=== PATIENT | male | born 1965 | race Caucasian/White ===

== ENCOUNTER 2016-09-23 18:05 | Emergency (ER) | payer SELFPAY ==
[~2016-09-23] VITALS: Ht 180.3 cm; Wt 112.5 kg
[2016-09-23 18:15] VITALS: BP 150/85
--- NOTE | 2016-09-23 18:42 | PHYS DOC ---
Past Medical History Past Medical History: No Pertinent History Past Surgical History: No Surgical History Alcohol Use: None Drug Use: None Adult General Chief Complaint Chief Complaint: MECHANICAL FALL [facility] HPI Patient is a 50 year old female presents emergency department stating that he fell 3 foot off of a ladder this morning when he was trying to fix a satellite instructed. He states when he landed he landed on his right shoulder. Patient is right-hand dominant. 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 He states that he has taken pain medication at home Tylenol at home and aspirin without relief. Patient denies any numbness or tingling into his fingers. He has equal abrasive band winder and equal strength bilaterally. He does have decreased range of motion to the right shoulder Review of Systems Review of Systems Constitutional: Denies fever or chills [] Eyes: Denies change in visual acuity, redness, or eye pain [] HENT: Denies nasal congestion or sore throat [] Respiratory: Denies cough or shortness of breath [] Cardiovascular: No additional information not addressed in HPI [] GI: Denies abdominal pain, nausea, vomiting, bloody stools or diarrhea [] : Denies dysuria or hematuria [] Musculoskeletal: Denies back pain. Right shoulder pain after fall Integument: Denies rash or skin lesions [] Neurologic: Denies headache, focal weakness or sensory changes [] Allergies Allergies Allergies Coded Allergies Type Severity Reaction Last Updated Verified No Known Drug Allergies 09/23/16 No Physical Exam Physical Exam Constitutional: Well developed, well nourished, no acute distress, non-toxic appearance. [] HENT: Normocephalic, atraumatic, bilateral external ears normal, oropharynx moist, no oral exudates, nose normal. [] Eyes: PERRLA, EOMI, conjunctiva normal, no discharge. [] Neck: Normal range of motion, no tenderness, supple, no stridor. [] Cardiovascular:Heart rate regular rhythm Lungs & Thorax: no respiratory distress Skin: Warm, dry, no erythema, no rash. [] Back: No tenderness Extremities: Right shoulder tenderness, no cyanosis, no clubbing, no edema noted. No tenderness noted along the clavicle area. Patient does have slight tenderness over the before meals joint. Patient has decreased range of motion with the right shoulder. He does have equal abrasive band winder and equal strength. Denies any numbness or tingling in the upper arms or in the left hand. Neurologic: Alert and oriented X 3, normal motor function, normal sensory function, no focal deficits noted. [] Psychologic: Affect normal, judgement normal, mood normal. [] Current Patient Data Vital Signs Vital Signs Date Time Temp Pulse Resp B/P Pulse Ox O2 Delivery O2 Flow Rate FiO2 09/23/16 18:15 97.5 76 16 99 Room Air 97.5 EKG EKG [] Radiology/Procedures Radiology/Procedures [] Course & Med Decision Making Course & Med Decision Making Pertinent Labs and Imaging studies reviewed. (See chart for details) X-rays were negative per Dr. Mitchell. Patient will be placed in a sling will be discharged home in stable condition. Recommended ibuprofen 800 mg every 8 hours with food stop taking few develop an upset stomach. Ice packs on 20 minutes off 20 minutes several times a day. Wear the sling until you follow-up with orthopedic. Patient is from out of town spoke with him in regards to getting an orthopedic consult when he gets home. Patient agrees with discharge instructions. Signs and symptoms to return to the emergency department as been provided. [] Dragon Disclaimer Dragon Disclaimer This electronic medical record was generated, in whole or in part, using a voice recognition dictation system. Departure Departure Impression: Primary Impression: Right shoulder pain Disposition: 01 HOME, SELF-CARE Condition: STABLE Referrals: NO PCP (PCP) Patient Instructions: Arm Sling Use-Brief, Shoulder Exercises, Generic, SportsMed, Shoulder Pain, [id number] Additional Instructions: Activity as tolerated Ibuprofen 800 mg every 8 hours with food. Stop taking few develop an upset stomach. Ice packs on 20 minutes off 20 minutes several times a day. Elevation as much as possible. Wear the sling whenever you are up ambulating. Do shoulder exercises to help prevent freezing of the shoulder. Follow-up with orthopedic went to return home. Return to the emergency department for signs and symptoms of become worse. MIRYAM MOORE APRN Sep 23, 2016 18:42
[2016-09-23] MEDS ORDERED: HYDROCODONE/APAP 5/325MG TABLET. PO ONE (18:45)
--- NOTE | 2016-09-24 07:23 | RAD ---
EXAM: Right shoulder, 3 views. HISTORY: Pain. COMPARISON: None. FINDINGS: Frontal, lateral and oblique views of the right shoulder are obtained. There is no fracture, dislocation or subluxation. IMPRESSION: No acute osseous finding.
== END 2016-09-23 18:45 | disposition home or self-care (01) ==
LOC: ER 18:05
DX: M25.511 Pain in right shoulder (principal); W11.XXXA Fall on and from ladder, initial encounter; Y93.89 Activity, other specified; Y92.89 Other specified places as the place of occurrence of the external cause; Y99.8 Other external cause status
CPT/HCPCS: 73030; 99284